=== PATIENT | female | born 1940 | race Caucasian/White ===

== ENCOUNTER 2023-12-09 11:16 | Observation (INO) ==
[2023-12-09 11:40] LABS: ABS Basophils 0.1 10^3/uL (0.0-0.1); ABS Eosinophils 0.2 10^3/uL (0.0-0.5); ABS Lymphocytes 1.7 10^3/uL (1.0-4.8); ABS Monocytes 0.6 10^3/uL (0.0-0.9); ABS Neutrophils 4.4 10^3/uL (1.5-7.6); ABS Nucleated RBC 0.01 10^3/ul; Eosinophil % 2.4 %; Hematocrit 39.5 % (35-45); Hemoglobin 13.5 g/dL (11.5-14.3); Lymphocyte % 24.3 %; Mean Corpuscular Hemoglobin 33.8 pg (27-33); Mean Corpuscular Hgb Conc 34.3 g/dL (31-36); Mean Corpuscular Volume 98.4 fL (80-97); Mean Platelet Volume 7.9 fL (7.5-11.2); Nucleated Red Blood Cells % 0.1 %/100WBC (0.0-0.8); Platelet Count 299 10^3/uL (150-450); Red Blood Count 4.01 10^6/uL (3.63-4.92); Red Cell Distribution Width 12.6 % (12-17); White Blood Count 6.9 10^3/uL (3.8-11.8)
[2023-12-09 11:51] LABS: Activated Partial Thrombo Time 48.8 seconds (26.0-38.0); INR 0.91 (0.83-1.13)
[2023-12-09 12:11] LABS: Urine Appearance Clear; Urine Bilirubin Negative (Negative); Urine Blood Negative (Negative); Urine Color Light-Yellow; Urine Glucose Negative (Negative); Urine Ketones Negative (Negative); Urine Nitrite Negative (Negative); Urine Protein Negative (Negative); Urine Specific Gravity 1.015 (1.002-1.030); Urine Urobilinogen Negative (Negative); Urine pH 6.5 (5.0-8.0)
[2023-12-09 12:25] LABS: Albumin 4.5 g/dL (3.2-5.2); Calcium 9.7 mg/dL (8.6-10.3); Creatinine, Serum 0.74 mg/dL (0.51-0.95); Direct Bilirubin 0.1 mg/dL (0.03-0.18); Globulin 2.3 g/dL (2-4); HDL Cholesterol 102.1 mg/dL; Indirect Bilirubin 0.4 mg/dL (0.3-1.0); Potassium 4.5 mmol/L (3.5-5.0); Total Bilirubin 0.5 mg/dL (0.2-1.0); Total Protein 6.8 g/dL (6.4-8.9); eGFR CKD-EPI 80.7 (>60)
[2023-12-09] MEDS: Aspirin EC 81 mg TAB.EC (enteric coated) PO ONE (13:41)
[2023-12-09 14:39] LABS: TSH Ultra Thyroid Stim Horm 2.67 mcIU/mL (0.34-5.60)
[2023-12-09] MEDS: Labetalol IV 5 MG/ML 20 ml VIAL IV PUSH ONE ×3 (14:43→20:45)
[2023-12-09] MEDS: Enoxaparin 40 MG/0.4 ML SYR SUBCUT SCH (16:00)
[2023-12-09] MEDS ORDERED: Albuterol HFA INHALER 8 gm MDI INH PRN (16:57)
[2023-12-09] MEDS: Multivitamins/Mins AREDS2 (NF) CAP PO SCH (20:18)
[2023-12-10 06:23] LABS: ABS Basophils 0.1 10^3/uL (0.0-0.1); ABS Eosinophils 0.2 10^3/uL (0.0-0.5); ABS Lymphocytes 1.6 10^3/uL (1.0-4.8); ABS Monocytes 0.5 10^3/uL (0.0-0.9); ABS Nucleated RBC 0.01 10^3/ul; Eosinophil % 4.6 %; Hematocrit 34.5 % (35-45); Hemoglobin 11.9 g/dL (11.5-14.3); Lymphocyte % 29.8 %; Mean Corpuscular Hemoglobin 33.7 pg (27-33); Mean Corpuscular Hgb Conc 34.4 g/dL (31-36); Mean Corpuscular Volume 98.1 fL (80-97); Nucleated Red Blood Cells % 0.1 %/100WBC (0.0-0.8); Platelet Count 249 10^3/uL (150-450); Red Blood Count 3.51 10^6/uL (3.63-4.92); Red Cell Distribution Width 12.6 % (12-17); White Blood Count 5.4 10^3/uL (3.8-11.8)
[2023-12-10 06:53] LABS: Calcium 8.9 mg/dL (8.6-10.3); Creatinine, Serum 0.61 mg/dL (0.51-0.95); Magnesium 1.9 mg/dL (1.9-2.7); Potassium 4.2 mmol/L (3.5-5.0); eGFR CKD-EPI 89.2 (>60)
[2023-12-10] MEDS: CYANOCOBALAMIN 50 MCG PO SCH (09:11)
[2023-12-10] MEDS: Cholecalciferol (VIT D3) 400 units TAB PO SCH (11:27)
[2023-12-10 14:38] VITALS: BP 120/69
[2023-12-10] MEDS ORDERED: Calcium Carb (TUMS) 500 mg CHEW TAB PO PRN (16:57)
[2023-12-10] MEDS ORDERED: Mometasone 220 MCG MDI INH SCH (19:00)
== END 2023-12-10 15:25 | disposition home or self-care (01) ==
LOC: EDHOLD 11:16 → ED 11:16 → SUATTDRO 14:07 → MEDTELE 16:20
PROVIDERS: ADMIT Internal Medicine; ATTEND Student in an Organized Health Care Education/Training Program